=== PATIENT | female | born 1995 | race Caucasian/White ===

== ENCOUNTER → 2018-10-20 | Outpatient (CLI) | payer OTHER, SELFPAY | LOC: M OUTALCOH 10:39 | PROVIDERS: ATTEND Psychiatry & Neurology Psychiatry | DX: F10.10 Alcohol abuse, uncomplicated (principal) ==

== ENCOUNTER 2018-10-28 15:53 | Outpatient (RCR) | payer SELFPAY | END 2018-11-06 | LOC: M OUTALCOH 15:53 | PROVIDERS: ATTEND Psychiatry & Neurology Psychiatry | DX: F10.10 Alcohol abuse, uncomplicated (principal); Z72.0 Tobacco use ==

== ENCOUNTER → 2018-12-06 | Outpatient (RCR) | payer SELFPAY | LOC: M OUTALCOH 11-08 16:00 | PROVIDERS: ATTEND Psychiatry & Neurology Psychiatry | DX: F10.10 Alcohol abuse, uncomplicated (principal); Z72.0 Tobacco use ==

== ENCOUNTER 2018-12-30 15:53 | Outpatient (RCR) | payer SELFPAY | END 2019-01-06 | LOC: M OUTALCOH 15:53 | PROVIDERS: ATTEND Psychiatry & Neurology Psychiatry | DX: F10.10 Alcohol abuse, uncomplicated (principal); Z72.0 Tobacco use ==

== ENCOUNTER 2019-01-11 12:00 | Outpatient (RCR) | payer SELFPAY | END 2019-02-05 | LOC: M OUTALCOH 12:00 | PROVIDERS: ATTEND Psychiatry & Neurology Psychiatry | DX: F10.10 Alcohol abuse, uncomplicated (principal); Z72.0 Tobacco use ==

== ENCOUNTER → 2019-03-30 | Outpatient (REF) | payer OTHER | LOC: M LAB REF 12:59 | PROVIDERS: ATTEND Advanced Practice Midwife | DX: Z34.81 Encounter for supervision of other normal pregnancy, first trimester (principal) ==

== ENCOUNTER → 2019-05-08 | Outpatient (CLI) | payer OTHER ==
--- NOTE | 2019-05-08 13:24 | REP ---
Obstetric sonography: History: Supervision of for anatomy. Findings: Scanning through the gravid uterus demonstrates a viable single intrauterine gestation in a variable lie. motion is observed and heart rate is recorded at 157 beats per minute. A fundal grade 0 placenta is seen without evidence of previa or abruption. Amniotic fluid is subjectively normal. Closed cervical length is measured at 4.4 cm transabdominally. No extrauterine abnormalities observed. Umbilical cord is seen draping over the shoulders. No anomaly is seen. Four-chamber heart and left ventricular outflow tract visualization is less than optimal due to position. The following additional anatomic structures are identified and felt to be sonographically unremarkable: cranium, choroid plexus, cavum, cerebellum posterior fossa, face and profile, lungs, right ventricular outflow tract view, diaphragm, left-sided stomach, abdominal wall cord insertion, three-vessel umbilical cord, kidneys and bladder, spine, upper and lower extremities. Biometry chart: BPD 4.2 cm = 18 weeks 4 days Head circumference 15.2 cm = 18 weeks 2 days Abdominal circumference 12.7 cm = 18 weeks 2 days Femur length 2.7 cm = 18 weeks 2 days Humeral length 2.6 cm = 18 weeks 2 days HC/AC ratio normal 1.20. Cephalic index normal 0.77. Estimated weight 133 grams, 0 pounds 8 ounces, 46 percentile for 18 weeks 2 days. Impression: Viable single intrauterine gestation at 18 weeks 3 days by today's composite sonographic criteria. MIKEY by today's sonography October 06, 2019. Four-chamber heart and left ventricular outflow tract views are less than optimally achieved today due to position. Electronically Signed by Rik Hutchinson MD 05/08/2019 02:27 P
== END ==
LOC: M RAD 08:12
PROVIDERS: ATTEND Advanced Practice Midwife
DX: Z34.82 Encounter for supervision of other normal pregnancy, second trimester (principal); Z3A.18 18 weeks gestation of pregnancy

== ENCOUNTER → 2019-06-12 | Outpatient (CLI) | payer OTHER, SELFPAY ==
--- NOTE | 2019-06-13 03:19 | REP ---
Clinical: Anatomical evaluation. Comparison: 04/21/2019 . Findings: Examination demonstrates a single live intrauterine in cephalic presentation. motion is identified by technologist. Placenta is noted posterior/fundal and grade zero without evidence for placenta previa or abruption. Amniotic fluid volume is normal. Cervix measures 4.5 cm in length and appears closed. Nuchal cord cannot be excluded Gestational age by LMP 23 weeks 2 days with MIKEY 10/07/2019 . Gestational age by current measurements 22 weeks 6-day with MIKEY 10/10/2019 . FHR equals 152 beats per minute. Estimated weight 534 grams ( 30th percentile). Anatomical assessment demonstrates normal structures including cranium, choroid plexus, cavum, cerebellum/posterior fossa, facial features, lungs, ventricular outflow tracts, diaphragm, stomach, cord insertion/three-vessel cord, kidneys/bladder, spine, and extremities. Impression: 1. Single live intrauterine in cephalic presentation demonstrating appropriate interval growth. 2. Limited evaluation of the four-chamber heart again noted. 3. Nuchal cord cannot be excluded. Electronically Signed by Romeo Perez MD 06/13/2019 03:10 A
== END ==
LOC: M RAD 15:59
PROVIDERS: ATTEND Advanced Practice Midwife
DX: Z34.82 Encounter for supervision of other normal pregnancy, second trimester (principal); Z3A.22 22 weeks gestation of pregnancy

== ENCOUNTER → 2019-07-05 | Outpatient (CLI) | payer OTHER ==
--- NOTE | 2019-07-05 19:19 | REP ---
Clinical: Anatomical evaluation. Comparison: 06/12/2019 . Findings: Examination demonstrates a single live intrauterine in cephalic presentation. motion is identified by technologist. Placenta is noted posterior fundal and grade I I without evidence for placenta previa or abruption. Amniotic fluid volume is normal. Cervix measures 3.4 cm in length and appears closed. No evidence for nuchal cord. Gestational age by LMP 26 weeks 4 days with MIKEY 10/07/2019 . Gestational age by current measurements 26 weeks 5 days with MIKEY 10/06/2019 . FHR equals 147 beats per minute. Estimated weight 992 grams ( 49th percentile). Anatomical assessment demonstrates normal structures including cranium, choroid plexus, cavum, cerebellum/posterior fossa, facial features, lungs, four-chamber heart/ventricular outflow tracts, diaphragm, stomach, cord insertion/three-vessel cord, kidneys/bladder, spine, and extremities. Impression: Single live intrauterine in cephalic presentation demonstrating appropriate interval growth. Anatomical assessment is complete and normal. No gross abnormalities are identified. Electronically Signed by Romeo Perez MD 07/05/2019 07:10 P
== END ==
LOC: M RAD 17:06
PROVIDERS: ATTEND Obstetrics & Gynecology
DX: O34.219 Maternal care for unspecified type scar from previous cesarean delivery (principal); Z3A.26 26 weeks gestation of pregnancy

== ENCOUNTER → 2019-09-13 | Outpatient (REF) | payer OTHER | LOC: M SFHCWAGY 10:13 | PROVIDERS: ATTEND Advanced Practice Midwife | DX: Z36.85 Encounter for antenatal screening for Streptococcus B (principal) ==

== ENCOUNTER 2019-09-18 09:45 | Outpatient (CLI) | payer OTHER ==
[~2019-09-18] VITALS: Ht 154.9 cm; Wt 81.5 kg
[2019-09-18 09:59] VITALS: BP 118/75
--- NOTE | 2019-09-18 10:19 | IPNPDOC ---
Text Note Date of Service The patient was seen on 09/18/19. NOTE Subjective: Edelmira Daniel is a 24-year-old at 37.1 wk gestation by LMP and consistent with first trimester ultrasound. MIKEY 10/07/2019. Care was established in the first trimester. has been complicated by history of section and history of gestational diabetes. Patient is also a smoker. Patient is O positive. Pre- weight was 176# and last weight was 179#. She presents to L&D today with complaints of bright red bleeding that started about 0600 this morning. She denies clots and reports bleeding was like a normal period initially, but almost resolved by arrival. Patient reports occasional cramping, but denies contractions or leakage of fluid. She reports positive movement. Patient denies recent intercourse. Objective: FHR 130 with moderate variability, accelerations present, decelerations absent. Irregular contractions noted that are mild to palpation. Uterus is soft and nontender. Speculum exam showed scant dark red to brown blood and negative pooling with coughing. No leakage of fluid noted. SVE 2-3/70/-2, fetus vertex. Ultrasound without signs of placenta previa or abruption (see attached results). -Past Medical History: Chlamydia, gestational diabetes (previous ) -Past Surgical History: section, bunionectomy -Family History: HTN -Social History: Denies alcohol abuse or drug use. Reports 1/2 PPD cigarette use. -Medications: Vitamin 1 tab PO daily Assessment: SIUP @ 37.1wk gestation, category 1 tracing, nicotine use in , scant vaginal bleeding without placenta previa or abruption Plan: -Speculum exam and SVE. -Continuous monitoring. -Abdominal ultrasound. -Clear liquids PO as tolerated. -Discharge home with instructions to call for signs of abruption (increased vaginal bleeding and severe abdominal pain), leakage of fluid, decreased movement or painful uterine contractions increasing in intensity and frequency. -Keep follow-up appointment this week on . VS,Fishbone, I+O VS, Fishbone, I+O Vital Signs Date Time Temp Pulse Resp B/P (MAP) Pulse Ox O2 Delivery O2 Flow Rate FiO2 09/18/19 09:59 98.0 93 18 118/75 (89) 98 cc: [~ rep ct ivnm] Service Date&Time: 09/18/19 1032 EXAMINATION REQUESTED: Obs. Limited, LIDYA US REASON FOR PATIENT VISIT: BLEEDING REASON FOR EXAM/COMMENT: vaginal bleeding, view placenta for abuption, prior c/s Clinical: Placenta abruption Comparison: 07/05/2019 the . Findings: Examination demonstrates a single live intrauterine in cephalic presentation. motion is identified by technologist. Placenta is noted fundal and grade I I I without evidence for placenta previa or abruption. Amniotic fluid volume is normal. Cervix measures 4.4 cm in length and appears closed. No evidence for nuchal cord. Gestational age by LMP 37 weeks 2 days with MIKEY 10/07/2019 . FHR equals 144 beats per minute. Amniotic fluid index: 14.4 cm Umbilical cord SD ratio: 2.39 (1.60 - 2.60) Impression: Single live advanced gestation in cephalic presentation. Amniotic fluid volume normal. Grade 3 placental changes without evidence for abruption. Electronically Signed by Romeo Perez MD 09/18/2019 10:59 INDIA DESOUZA CNM Sep 18, 2019 10:19
[2019-09-18 10:45] VITALS: BP 106/56
--- NOTE | 2019-09-18 11:07 | REP ---
Clinical: Placenta abruption Comparison: 07/05/2019 the . Findings: Examination demonstrates a single live intrauterine in cephalic presentation. motion is identified by technologist. Placenta is noted fundal and grade I I I without evidence for placenta previa or abruption. Amniotic fluid volume is normal. Cervix measures 4.4 cm in length and appears closed. No evidence for nuchal cord. Gestational age by LMP 37 weeks 2 days with MIKEY 10/07/2019 . FHR equals 144 beats per minute. Amniotic fluid index: 14.4 cm Umbilical cord SD ratio: 2.39 (1.60 - 2.60) Impression: Single live advanced gestation in cephalic presentation. Amniotic fluid volume normal. Grade 3 placental changes without evidence for abruption. Electronically Signed by Romeo Perez MD 09/18/2019 10:59 A
[2019-09-18 12:23] VITALS: BP 104/68
== END 2019-09-18 12:29 | disposition home or self-care (01) ==
LOC: M LDO 09:45
PROVIDERS: ATTEND Advanced Practice Midwife
DX: O46.93 Antepartum hemorrhage, unspecified, third trimester (principal); Z3A.37 37 weeks gestation of pregnancy; O99.333 Smoking (tobacco) complicating pregnancy, third trimester; F17.210 Nicotine dependence, cigarettes, uncomplicated; O34.211 Maternal care for low transverse scar from previous cesarean delivery; Z88.0 Allergy status to penicillin; Z88.2 Allergy status to sulfonamides
CPT/HCPCS: 59025; 76815; 76820; G0378; G0463

== ENCOUNTER 2019-09-26 23:28 | Inpatient (IN) | payer OTHER ==
[~2019-09-26] VITALS: Ht 170.2 cm; Wt 83.5 kg
[2019-09-26 23:46] VITALS: BP 114/74
[2019-09-26] MEDS ORDERED: MULTTAB20 PO (23:48)
[2019-09-27] VITALS (26 sets, daily range): BP systolic 99–137; BP diastolic 55–82
[2019-09-27 04:38] LABS: HEMATOCRIT 34.2 % (36.0-47.0); HEMOGLOBIN 11.7 g/dl (12.0-15.5); MEAN CORPUSCULAR HEMOGLOBIN 31.1 pg (27.0-33.0); MEAN CORPUSCULAR HGB CONC 34.2 g/dl (32.0-36.5); PLATELET COUNT, AUTOMATED 283 10^3/uL (150-450); RED BLOOD COUNT 3.76 10^6/uL (4.00-5.40); WHITE BLOOD COUNT 10.9 10^3/uL (4.0-10.0)
[2019-09-27] MEDS ORDERED: LACTATED RINGER'S 1000 ML IV STA (05:07)
[2019-09-27] MEDS: VANCOMYCIN HCL 1,000 MG, VIAL MATE ADAPTER 1 EACH in D5W 250 ML IV SCH ×2 (05:28→17:41)
[2019-09-27] MEDS: LR 1,000 ML IV SCH ×2 (05:28→11:26)
[2019-09-27] MEDS ORDERED: LR 1,000 ML IV SCH ×3 (09:13→21:30)
[2019-09-27] MEDS ORDERED: OXYTOCIN DRIP 30 UNITS in IV 1 EA IV SCH ×2 (09:15→21:24)
[2019-09-27 09:33] LABS: HIV 1&2 SCREEN CENTAUR NEGATIVE (NEGATIVE)
[2019-09-27] MEDS ORDERED: ACETAMINOPHEN 500 MG TAB PO PRN (15:45)
[2019-09-27] MEDS ORDERED: ceFAZolin SOD 2 GM in IV 1 EA IV ONE (17:15)
[2019-09-27] MEDS ORDERED: AZITHROMYCIN INJ 500 MG, VIAL MATE ADAPTER 1 EACH in D5W 250 ML IV ONE (17:15)
[2019-09-27] MEDS ORDERED: BICITRA 30ML SOLN UDC PO ONE (17:15)
[2019-09-27] MEDS ORDERED: diphenhydrAMINE INJ 50MG/ML VIAL (J1200) IV PRN (20:20)
[2019-09-27] MEDS ORDERED: METOCLOPRAMIDE INJ 10MG/2ML VIAL (J2765) IV PRN ×2 (20:20→21:30)
[2019-09-27] MEDS ORDERED: NALBUPHINE HCL 10 MG/ML AMP (J2300) IV PRN (20:20)
[2019-09-27] MEDS ORDERED: NALOXONE INJ 0.4 MG/1 ML VIAL (J2310) IV PRN ×2 (20:20)
[2019-09-27] MEDS ORDERED: ONDANSETRON 4MG/2ML VIAL (J2405) IV PRN ×2 (20:20→21:30)
[2019-09-27] MEDS ORDERED: OXYTOCIN INJ 10 UNITS/ML VIAL (J2590) ONE (20:24)
[2019-09-27] MEDS ORDERED: MORPHINE PRES-FREE INJ 10 MG/10 ML VIAL (J2274) ONE (20:24)
[2019-09-27] MEDS ORDERED: PHENYLephrine HCL 500 MCG/5 ML (100MCG/ML) SYRINGE (J2370) ONE (20:32)
[2019-09-27] MEDS ORDERED: ePHEDrine SULFATE 25 MG/5 ML(5MG/ML) SYRINGE ONE (20:33)
[2019-09-27] MEDS ORDERED: ONDANSETRON 4MG/2ML VIAL (J2405) ONE (20:44)
[2019-09-27] MEDS ORDERED: MIDAZOLAM INJ 2 MG/2 ML VIAL (J2250) ONE (20:53)
[2019-09-27] MEDS ORDERED: fentaNYL 100 MCG/2 ML INJECTION (J3010) As Ordered ONE (21:24)
[2019-09-27] MEDS ORDERED: ONDANSETRON 4 MG TAB (S0181) PO PRN (21:30)
[2019-09-27] MEDS ORDERED: fentaNYL 100 MCG/2 ML INJECTION (J3010) IV PRN (21:30)
[2019-09-27] MEDS ORDERED: PERCOCET 5MG/325MG TAB PO PRN ×2 (21:30)
[2019-09-27] MEDS ORDERED: RHOGAM 300 MCG (1500 IU) INJ (J2790) IM SCH (21:30)
[2019-09-27] MEDS ORDERED: MOM 30ML SUSPENSION UDC PO PRN (21:30)
[2019-09-27] MEDS ORDERED: MEASLES,MUMPS,RUBELLA VACCINE INJ (MMR-II) (90707) SC SCH (21:30)
[2019-09-27 22:06] LABS: CORD GAS ABE A -8.3; CORD GAS ABE V -2.8; CORD GAS HCO3 A 22.2 MEQ/L; CORD GAS HCO3 V 24.7 MEQ/L; CORD GAS O2 SAT A 18.7 %; CORD GAS O2 SAT V 29.1 %; CORD GAS PCO2 A 67.6 mmHg; CORD GAS PCO2 V 53.2 mmHg; CORD GAS PH A 7.135 UNITS; CORD GAS PH V 7.284 UNITS; CORD GAS PO2 A 15.3 mmHg; CORD GAS SBC A 16.2 MEQ/L; CORD GAS SBC V 20.5 MEQ/L; CORD GAS TCO2 A 24.3 MEQ/L; CORD GAS TCO2 V 26.3 MEQ/L
[2019-09-27] MEDS: KETOROLAC 30 MG/ML VIAL (J1885) IV SCH (23:18)
[2019-09-28] VITALS (8 sets, daily range): BP systolic 97–116; BP diastolic 53–72
[2019-09-28] MEDS: KETOROLAC 30 MG/ML VIAL (J1885) IV SCH ×3 (04:57→17:16)
[2019-09-28 07:40] LABS: HEMATOCRIT 25.3 % (36.0-47.0); MEAN CORPUSCULAR HEMOGLOBIN 32.1 pg (27.0-33.0); MEAN CORPUSCULAR HGB CONC 34.8 g/dl (32.0-36.5); MEAN CORPUSCULAR VOLUME 92.3 fl (80.0-96.0); PLATELET COUNT, AUTOMATED 215 10^3/uL (150-450); RED BLOOD COUNT 2.74 10^6/uL (4.00-5.40); WHITE BLOOD COUNT 8.2 10^3/uL (4.0-10.0)
[2019-09-28 07:45] LABS: HEMOGLOBIN 8.8 g/dl (12.0-15.5)
[2019-09-28] MEDS: DOCUSATE SODIUM 100 MG CAP PO SCH ×2 (09:58→19:35)
[2019-09-28] MEDS: PRENATAL VITAMINS CHEWABLE TABLET PO SCH (09:58)
[2019-09-28] MEDS ORDERED: LR 1,000 ML IV SCH (11:00)
--- NOTE | 2019-09-28 14:38 | RO ---
DATE OF PROCEDURE: 09/27/2019 Edelmira is a 24-year-old female with a history of prior section, who presented at 38 weeks and 4/7 weeks' gestation with spontaneous rupture of membranes. She was progressed to 7 cm, was found to be breech presentation, and she is a prior section as well. After counseling a decision was made to proceed with a repeat c/s. PREOPERATIVE DIAGNOSES: 1. Intrauterine at 38-4/7 weeks' gestation with spontaneous rupture of membrane around 4 a.m. 2. Breech presentation. 3. Prior section. POSTOPERATIVE DIAGNOSES: 1. Intrauterine at 38-4/7 weeks' gestation with spontaneous rupture of membrane around 4 a.m. 2. Breech presentation. 3. Prior section. 4. Transverse breech with a compound right hand. PROCEDURE: 1. Repeat section. 2. Breech extraction. 3. Revision of old scar. SURGEON: Dr. Srinivas Oneal JUNIOR QA ANALYST: Janey Villanueva ANESTHESIA: COMPLICATION: None. ESTIMATED BLOOD LOSS: 500 mL. FINDING: Male , transverse breech with a compound right hand. scores 8/9, weight 7 pounds 8 ounces. Normal-appearing tubes and ovaries. DESCRIPTION OF PROCEDURE: After obtaining informed consent, the patient was taken to the operating room, where spinal anesthetic was found to be adequate. She was then draped and prepped in usual sterile fashion in the supine position. At this point, an elliptical incision was made over her old scar. The old scar was removed. Incision was then carried down to the fascia with the help of my optometrist assistant. The fascia was then incised in midline fashion and carried through laterally. Superior aspect of the fascia was then grasped with a Connor clamp, tented off, and dissected off the rectus muscles sharply. The inferior aspect was dissected off in similar fashion. Rectus muscles in midline fashion. Perineum identified. Peritoneal cavity entered bluntly. Superior and inferior dissection of peritoneum was then done with good visualization of the bladder. At this point, a Mobius skin retractor was placed, a low-transverse uterine incision was made. Upon opening the a uterine incision, the right hand was found to be compounded with the baby in a transverse position. At this point, after attempting to replace the back end to deliver, was not able to convert to a vertex. At this point, the baby was converted to a footling breech presentation and was delivered in atraumatic fashion. Cord was doubly clamped, and was handed over to the awaiting warmer. Cord blood and cord gas were sent. Placenta removed manually. Uterus cleared of all clot and debris, and the uterine incision was then repaired in two separate layers of #0 Vicryl sutures. Pelvis copiously irrigated with normal saline and suctioned out. Attention turned to the peritoneum, which was closed in a running fashion with #0 Vicryl. Fascia closed in two separate segments of #0 Vicryl sutures. All superficial bleeders coagulated, and the skin was reapproximated in subcuticular fashion using #3-0 Vicryl on a Jorden. Steri-Strips placed. A sterile dressing placed. The patient tolerated procedure well and was transferred to recovery room in stable condition. LUCRETIA
[2019-09-29] MEDS: IBUPROFEN 800 MG TAB PO SCH ×2 (01:48→09:04)
[2019-09-29 01:53] VITALS: BP 108/64
[2019-09-29 05:23] VITALS: BP 103/67
[2019-09-29] MEDS ORDERED: DOCU100C16 PO (08:46)
[2019-09-29] MEDS ORDERED: PERCOCET PO (08:46)
[2019-09-29] MEDS ORDERED: IBUP80TA PO (08:46)
[2019-09-29] MEDS: DOCUSATE SODIUM 100 MG CAP PO SCH (09:04)
[2019-09-29] MEDS: PRENATAL VITAMINS CHEWABLE TABLET PO SCH (09:04)
== END 2019-09-29 16:08 | disposition home or self-care (01) | DRG 540 ==
LOC: M LDO 23:28 → M LDI 09-27 04:12 → M OBS 09-27 23:00
PROVIDERS: ADMIT Obstetrics & Gynecology; ATTEND Obstetrics & Gynecology
PROC: 10D00Z1 Extraction of Products of Conception, Low, Open Approach (ICD-10-PCS; principal; 2019-09-27 20:00)
DX: O32.2XX0 Maternal care for transverse and oblique lie, not applicable or unspecified (principal); O99.824 Streptococcus B carrier state complicating childbirth; O34.211 Maternal care for low transverse scar from previous cesarean delivery; O32.6XX0 Maternal care for compound presentation, not applicable or unspecified; Z37.0 Single live birth; Z3A.38 38 weeks gestation of pregnancy

== ENCOUNTER 2022-08-28 08:58 | Day surgery (SDC) | payer OTHER ==
[~2022-08-28] VITALS: Ht 154.9 cm; Wt 59.0 kg
[~2022-08-28 08:58] MED LIST: ATOM10CA6 PO; CIPROFLOXACIN 400 MG in IV 1 EA IV ONE; DOCU100C16 PO; IBUP80TA PO; MULTTAB20 PO; PERCOCET PO
[2022-08-28] MEDS ORDERED: ONDANSETRON 4MG 2ML VIAL As Ordered ONE (09:34)
[2022-08-28] MEDS ORDERED: LIDOCAINE 2% 100MG/5ML SDV (FOR ANES.) As Ordered ONE (09:34)
[2022-08-28] MEDS ORDERED: propofoL 200 MG/20 ML VIAL As Ordered ONE (09:34)
[2022-08-28] MEDS ORDERED: fentaNYL 100 MCG/2 ML INJECTION As Ordered ONE (09:38)
[2022-08-28] MEDS ORDERED: MIDAZOLAM INJ 2MG/2ML VIAL As Ordered ONE (09:38)
[2022-08-28] MEDS ORDERED: ISOVUE-300 61% 50ML VIAL As Ordered ONE (10:52)
[2022-08-28] MEDS ORDERED: ePHEDrine SULFATE 25 MG/5 ML(5MG/ML) SYRINGE As Ordered ONE (11:21)
[2022-08-28] MEDS ORDERED: ACETAMINOPHEN 1000MG 100ML IV BAG As Ordered ONE (11:21)
[2022-08-28] MEDS ORDERED: METOCLOPRAMIDE INJ 10MG/2ML VIAL IV PRN (12:00)
[2022-08-28] MEDS ORDERED: ONDANSETRON 4MG 2ML VIAL IV PRN (12:00)
[2022-08-28] MEDS ORDERED: fentaNYL 100 MCG/2 ML INJECTION IV PRN (12:00)
[2022-08-28] MEDS ORDERED: HYDROMORPHONE HCL 0.5 MG/ 0.5 ML SYRINGE IV PRN (12:00)
[2022-08-28] MEDS ORDERED: LR 1,000 ML IV SCH (12:00)
[2022-08-28] MEDS: oxyCODONE 5MG TAB PO PRN ×2 (12:22→13:11)
[2022-08-28] MEDS ORDERED: PERCOCET 5MG/325MG TAB PO PRN (12:50)
[2022-08-28 13:45] VITALS: BP 138/73
[2022-09-01 16:08] LABS: Ca Ox Monohydrate 10 % (.); Size 6x3 mm (.)
== END 2022-08-28 13:50 | disposition home or self-care (01) ==
LOC: M SDC 08:58
PROVIDERS: ATTEND Urology
DX: N20.0 Calculus of kidney (principal); F90.9 Attention-deficit hyperactivity disorder, unspecified type; F17.210 Nicotine dependence, cigarettes, uncomplicated; F12.10 Cannabis abuse, uncomplicated; Z79.899 Other long term (current) drug therapy; Z88.0 Allergy status to penicillin; Z88.2 Allergy status to sulfonamides
CPT/HCPCS: 52356; 74420; 81025; 82365; C1769; C1894; J1100; J2405

== ENCOUNTER 2025-03-14 11:10 | Emergency (ER) | payer OTHER ==
[~2025-03-14] VITALS: Ht 154.9 cm; Wt 61.4 kg
[~2025-03-14 11:10] MED LIST changes: -CIPROFLOXACIN 400 MG in IV 1 EA IV ONE
[2025-03-14] MEDS ORDERED: PROZ20CA12 PO (11:29)
[2025-03-14] MEDS ORDERED: PRAM0.5T4 (11:29)
[2025-03-14 12:16] LABS: PLATELET COUNT, AUTOMATED 361 10^3/uL (150-450)
[2025-03-14 12:35] LABS: AMPHETAMINES LEVEL URINE NEGATIVE (NEGATIVE); METHADONE URINE NEGATIVE (NEGATIVE); OPIATES URINE NEGATIVE (NEGATIVE); PHENCYCLIDINE URINE NEGATIVE (NEGATIVE)
[2025-03-14 12:39] LABS: BARBITURATES URINE NEGATIVE (NEGATIVE)
[2025-03-14 12:40] LABS: BENZODIAZEPINES URINE NEGATIVE (NEGATIVE); ETHYL ALCOHOL (ETHANOL) < 0.003 % (0.000-0.010)
[2025-03-14 12:41] LABS: HCG, SERUM QUALITATIVE NEGATIVE (NEGATIVE)
[2025-03-14 12:42] LABS: ALT/SGPT 28 U/L (7.0-40); AST/SGOT 22 U/L (<34); CALCIUM LEVEL 9.4 MG/DL (8.5-10.1); CARBON DIOXIDE LEVEL 26 MMOL/L (20-31); CHLORIDE LEVEL 109 MMOL/L (98-107); CREATININE FOR GFR 0.86 MG/DL (0.55-1.30); GLOMERULAR FILTRATION RATE > 90.0 (>60); POTASSIUM SERUM 4.2 MMOL/L (3.5-5.1); SALICYLATE LEVEL < 3.0 MG/DL (<30); SODIUM LEVEL 145 MMOL/L (136-145)
[2025-03-14 13:00] LABS: CANNABINOIDS URINE POSITIVE (NEGATIVE); COCAINE METABOLITE URINE NEGATIVE (NEGATIVE)
[2025-03-14 14:13] VITALS: BP 124/76; TEMP 98.5; O2SAT 97
== END 2025-03-14 14:35 | disposition home or self-care (01) ==
LOC: M ED 11:10
DX: F43.0 Acute stress reaction (principal); F90.9 Attention-deficit hyperactivity disorder, unspecified type; F17.200 Nicotine dependence, unspecified, uncomplicated; F12.10 Cannabis abuse, uncomplicated; Z79.899 Other long term (current) drug therapy; Z88.0 Allergy status to penicillin; Z88.2 Allergy status to sulfonamides